=== PATIENT | female | born 1940 | race Caucasian/White ===

== ENCOUNTER 2019-05-02 18:27 | Observation (INO) | payer OTHER ==
--- OUTSIDE RECORDS SUMMARY | 2019-05-02 18:29 | XMS REPORT ---
:1940 [facility] Address [address] [place] [address] Dr. Alfaro [address] [place] [id number] Care Team Providers Name Role Phone Unavailable Unavailable Unavailable Problems This patient has no known problems. Allergies, Adverse Reactions, Alerts This patient has no known allergies or adverse reactions. Medications This patient has no known medications. Encounters Start End Encounter Admission Attending Care Care Encounter Date/Time Date/Time Type Type Clinicians Facility Department ID 2019-01-07 2019-01-07 Emergency E [id number] 18:34:00 18:34:00
--- NOTE | 2019-05-02 18:52 | RAD REPORT ---
EXAM DESCRIPTION: CT - Ct Stroke Brain Wo Cont - 05/02/2019 6:39 pm CLINICAL HISTORY: EXPRESSIVE APHASIA COMPARISON: none TECHNIQUE: Computed axial tomography of the head was obtained. All CT scans are performed using dose optimization technique as appropriate and may include automated exposure control or mA/KV adjustment according to patient size. FINDINGS: An intracranial bleed is not seen . The ventricles are normal in caliber. No extra-axial fluid collection is noted. Coarse vertebral artery calcifications Mild low-density within periventricular, deep and subcortical white matter likely ischemic changes se condary to small vessel disease Fluid within the sinuses/ mastoids is not seen. IMPRESSION: No acute intracranial abnormality is seen. If patient's symptoms persist MRI of the bra in would be recommended. Dr Murguia of the emergency room was notified at 6:30 p.m. May 02, 2019
[2019-05-02 19:02] LABS: Absolute Lymphocytes (CBC) 1.5 K/uL (0.7-4.9); Basophils % 1.5 % (0-1.3); Hematocrit 44.3 % (36.0-45.0); Lymphocytes % 20.7 % (15.3-44.8); MPV 10.3 fL (7.6-11.3); RBC Red Blood Cell Count 4.97 M/uL (3.86-4.86)
[2019-05-02 19:11] LABS: Potassium 4.2 mmol/L (3.5-5.1)
[2019-05-02 19:24] LABS: Protime INR 1.03
--- NOTE | 2019-05-02 19:25 | RAD REPORT ---
EXAM DESCRIPTION: Wanda Single View05/02/2019 6:51 pm CLINICAL HISTORY: cva COMPARISON: none FINDINGS: The lungs appear clear of acute infiltrate. The heart is normal size A central venous line has its tip in the superior vena cava IMPRESSION: No acute abnormalities displayed
[2019-05-02] MEDS ORDERED: LORazepam 2 MG/ML VIAL ONE (19:35)
--- NOTE | 2019-05-02 23:09 | ER ---
Nurse's Notes [facility] Name: Christy Corona Age: 79 yrs Sex: Female : 1940 Arrival Date: 05/02/2019 Time: 18:29 Bed 23 Private MD: Diagnosis: Transient ischemic attack Presentation: 05/02 18:19 An acute neurological deficit is present. The charge nurse has been notified. Onset of tw2 symptoms was May 02, 2019. Risk Assessment: Do you want to hurt yourself or someone else? Patient reports no desire to harm self or others. Initial Sepsis Screen: Does the patient meet any 2 criteria? No. Patient's initial sepsis screen is negative. Does the patient have a suspected source of infection? No. Patient's initial sepsis screen is negative. Note pt taken via w/c to CT with BAKARI Howe at this time. Care prior to arrival: None. 18:19 Acuity: LATHA 2 tw2 18:29 Presenting complaint: Friend states: started about 45 minutes ago, was normal, then she tw2 started saying words that dont make sense. Transition of care: patient was not received from another setting of care. 18:29 Method Of Arrival: Wheelchair tw2 18:42 Pre-hospital glucose is not applicable to this patient. Triage Assessment: 18:29 Neuro: Reports APhasia. 18:31 The onset of the patients symptoms was May 02, 2019 at 17:30. Neuro:. tw2 Stroke Activation: Symptom onset < 3 hours Physician: Stroke Attending; Name: ; Notified At: ; Arrived At: Physician: Chief Stroke Resident; Name: ; Notified At: ; Arrived At: Physician: Stroke Resident; Name: ; Notified At: ; Arrived At: Physician: ED Attending; Name: ; Notified At: ; Arrived At: Physician: ED Resident; Name: ; Notified At: ; Arrived At: 18:29 called at 1819 tw2 Historical: - Allergies: 19:30 No Known Allergies; - Home Meds: 19:30 levothyroxine 25 mcg tab 1 tab once daily [Active]; paroxetine HCl 10 mg oral tab 1 tab once daily [Active]; pioglitazone 15 mg oral tab [Active]; glimepiride 2 mg Oral tab 1 tab once daily [Active]; aspirin 81 mg Oral chew 1 tab once daily [Active]; metoprolol tartrate 100 mg Oral tab 1 tab once daily [Active]; - PMHx: 19:30 Diabetes - NIDDM; Hypertension; High Cholesterol; Non Hodgkins Lymphoma; - PSHx: 19:30 Cholecystectomy; Spinal SUrgery; - Immunization history:: Adult Immunizations. - Social history:: Smoking status: . - Ebola Screening: : Patient denies travel to an Ebola-affected area in the 21 days before illness onset. Screenin:35 Fall Risk None identified. wh 18:42 Abuse screen: Denies threats or abuse. Denies injuries from another. Nutritional ss screening: No deficits noted. Tuberculosis screening: Never had TB. Assessment: 18:31 VAN Scoring: Arm Drift: Patients demonstrates NO arm weakness. Patient is VAN Negative. tw2 Aphasia: Expressive aphasia noted. Provider notified of +VAN scoring. 18:35 General: Appears in no apparent distress. Behavior is calm, cooperative, appropriate wh for age. Pain: Denies pain. Neuro: Level of Consciousness is awake, alert, obeys commands, Oriented to person, place, time, situation, Appropriate for age Chemical Tank Worker are equal bilaterally Moves all extremities. Gait is steady, Speech is normal, Facial symmetry appears normal, Pupils are PERRLA, Intact. Cardiovascular: Heart tones S1 S2. Respiratory: Airway is patent Respiratory effort is even, unlabored, Respiratory pattern is regular, symmetrical. GI: Abdomen is flat, non-distended. : No signs and/or symptoms were reported regarding the genitourinary system. EENT: No signs and/or symptoms were reported regarding the EENT system. Derm: Skin is intact, is healthy with good turgor, Skin is pink, warm \T\ dry. normal. Musculoskeletal: Circulation, motion, and sensation intact. 18:35 Patient has been NPO before screening. The patient is alert, and able to follow commands. The patient does not exhibit slurred or garbled speech. The patient is not exhibiting difficulty speaking. The patient does not exhibit difficulty understanding words. The patient is able to swallow own secretions with no drooling or need for suction. Patient tolerated one teaspoon of water. No drooling, immediate coughing, gurgling, or clearing of the throat was noted. The patient tolerated 90mL of water. No drooling, immediate coughing, gurgling, or clearing of the throat was noted. The patient passed the bedside swallow screening. Oral medications may be given as ordered. Contact Physician for further diet orders. Provider notified of bedside swallow screening results: Celia Herron. 18:47 Reassessment: Decision to not administer TPA at this time per Dr. Murguia as patient's ss symptoms have resolved completely. 19:39 Reassessment: Patient appears in no apparent distress at this time. No changes from previously documented assessment. Patient and/or family updated on plan of care and expected duration. Pain level reassessed. Patient is alert, oriented x 3, equal unlabored respirations, skin warm/dry/pink. 20:35 Reassessment: Patient appears in no apparent distress at this time. No changes from previously documented assessment. Patient and/or family updated on plan of care and expected duration. Pain level reassessed. Patient is alert, oriented x 3, equal unlabored respirations, skin warm/dry/pink. 21:36 Reassessment: Patient appears in no apparent distress at this time. No changes from previously documented assessment. Patient and/or family updated on plan of care and expected duration. Pain level reassessed. Patient is alert, oriented x 3, equal unlabored respirations, skin warm/dry/pink. Pt returned from MRI. 22:37 Reassessment: Patient appears in no apparent distress at this time. No changes from previously documented assessment. Patient and/or family updated on plan of care and expected duration. Pain level reassessed. Patient is alert, oriented x 3, equal unlabored respirations, skin warm/dry/pink. Family at bedside Patient denies pain at this time. 23:45 Reassessment: Patient appears in no apparent distress at this time. No changes from previously documented assessment. Patient and/or family updated on plan of care and expected duration. Pain level reassessed. Patient is alert, oriented x 3, equal unlabored respirations, skin warm/dry/pink. Dr Samson at bedside explaining POC plan for admit. Vital Signs: 18:31 Temp 97.9(TE); tw2 19:39 BP 119 / 73; Pulse 92; Resp 18; Pulse Ox 98% on R/A; wh 20:30 BP 123 / 74; Pulse 87; Resp 18; Pulse Ox 99% ; wh 21:30 BP 119 / 72; Pulse 88; Resp 18; Pulse Ox 96% ; wh 22:38 BP 135 / 93; Pulse 92; Resp 18; Pulse Ox 98% ; 23:45 BP 134 / 81; Pulse 92; Resp 18; Pulse Ox 98% on R/A; 16 00:37 BP 125 / 83; Pulse 94; Resp 17; Pulse Ox 97% on R/A; rv NIH Stroke Scale Scores: 05/02 18:24 NIHSS Score: 1 ss 18:35 NIHSS Score: 0 wh 18:47 NIHSS Score: 0 ss 18:48 NIHSS Score: 0 kdr ED Course: 18:29 Patient arrived in ED. tw2 18:31 Triage completed. tw2 18:31 Arm band placed on. tw2 18:37 Celia Herron is Primary Nurse. 18:40 CT Stroke Brain w/o Contrast In Process Unspecified. EDMS 18:42 Patient has correct armband on for positive identification. Bed in low position. Call ss light in reach. 18:44 Inserted saline lock: 20 gauge in left antecubital area, using aseptic technique. ss ,using aseptic technique. Insertion by Celia Meneses RN Blood collected. Patient maintains SpO2 saturation greater than 95% on room air. 18:47 Kenny Murguia MD is Attending Physician. kdr 18:50 Stroke CXR 1 View In Process Unspecified. EDMS 20:46 MRA Head Wo Cont In Process Unspecified. EDMS 20:47 MRA Neck W/Wo Cont In Process Unspecified. EDMS 20:47 Brain W/Wo Cont In Process Unspecified. EDMS 23:08 Edilberto Samson is Hospitalizing Provider. tw4 05/03 00:38 No provider procedures requiring assistance completed. Patient admitted, IV remains in rv place. Administered Medications: 05/02 19:39 Drug: Ativan 0.5 mg Route: IVP; Site: left antecubital; 22:10 Follow up: Response: No adverse reaction; Anxiety decreased; RASS: Alert and Calm (0) Point of Care Testing: Blood Glucose: 18:30 Blood Glucose: 149 mg/dL; Ranges: Outcome: 23:09 Decision to Hospitalize by Provider. tw4 05/03 00:38 Admitted to Med/surg accompanied by tech, via wheelchair, room 203, with chart, Report rv called to carmi rn Condition: good Instructed on the need for admit. 00:39 Patient left the ED. rv NIH Stroke Scale - NIH Stroke Score Date: 05/02/2019 Time: 18:24 Total Score = 1 1a. Level of Consciousness (LOC) - 0(Alert) 1b. Level of Consciousness (LOC) (Year \T\ Age) - 0(Both) 1c. LOC Commands (Open \T\ Closes Eyes/Benzene Still Utility Operator) - 0(Both) 2. Best Gaze (Lateral Gaze Paresis) - 0(Normal) 3. Visual Field Loss - 0(No visual loss) 4. Facial Palsy - 0(Normal) 5a. Left Arm: Motor (10-second hold) - 0(No drift) 5b. Right Arm: Motor (10-second hold) - 0(No drift) 6a. Left Leg: Motor (5-second hold - always test supine) - 0(No drift) 6b. Right Leg: Motor (5-second hold - always test supine) - 0(No drift) 7. Limb Ataxia (finger/nose \T\ heel/penaloza - test with eyes open) - 0(Absent) 8. Sensory Loss (pinprick arms/legs/face) - 0(Normal) 9. Best Language: Aphasia (description/naming/reading) - 1(Mild to moderate aphasia) 10. Dysarthria (speech clarity - read or repeat words) - 0(Normal) 11. Extinction and Inattention (visual/tactile/auditory/spatial/personal) - 0(No abnormality) Initials: NIH Stroke Scale - NIH Stroke Score Date: 05/02/2019 Time: 18:35 Total Score = 0 1a. Level of Consciousness (LOC) - 0(Alert) 1b. Level of Consciousness (LOC) (Year \T\ Age) - 0(Both) 1c. LOC Commands (Open \T\ Closes Eyes/Benzene Still Utility Operator) - 0(Both) 2. Best Gaze (Lateral Gaze Paresis) - 0(Normal) 3. Visual Field Loss - 0(No visual loss) 4. Facial Palsy - 0(Normal) 5a. Left Arm: Motor (10-second hold) - 0(No drift) 5b. Right Arm: Motor (10-second hold) - 0(No drift) 6a. Left Leg: Motor (5-second hold - always test supine) - 0(No drift) 6b. Right Leg: Motor (5-second hold - always test supine) - 0(No drift) 7. Limb Ataxia (finger/nose \T\ heel/penaloza - test with eyes open) - 0(Absent) 8. Sensory Loss (pinprick arms/legs/face) - 0(Normal) 9. Best Language: Aphasia (description/naming/reading) - 0(No aphasia) 10. Dysarthria (speech clarity - read or repeat words) - 0(Normal) 11. Extinction and Inattention (visual/tactile/auditory/spatial/personal) - 0(No abnormality) Initials: NIH Stroke Scale - NIH Stroke Score Date: 05/02/2019 Time: 18:47 Total Score = 0 1a. Level of Consciousness (LOC) - 0(Alert) 1b. Level of Consciousness (LOC) (Year \T\ Age) - 0(Both) 1c. LOC Commands (Open \T\ Closes Eyes/Benzene Still Utility Operator) - 0(Both) 2. Best Gaze (Lateral Gaze Paresis) - 0(Normal) 3. Visual Field Loss - 0(No visual loss) 4. Facial Palsy - 0(Normal) 5a. Left Arm: Motor (10-second hold) - 0(No drift) 5b. Right Arm: Motor (10-second hold) - 0(No drift) 6a. Left Leg: Motor (5-second hold - always test supine) - 0(No drift) 6b. Right Leg: Motor (5-second hold - always test supine) - 0(No drift) 7. Limb Ataxia (finger/nose \T\ heel/penaloza - test with eyes open) - 0(Absent) 8. Sensory Loss (pinprick arms/legs/face) - 0(Normal) 9. Best Language: Aphasia (description/naming/reading) - 0(No aphasia) 10. Dysarthria (speech clarity - read or repeat words) - 0(Normal) 11. Extinction and Inattention (visual/tactile/auditory/spatial/personal) - 0(No abnormality) Initials: NIH Stroke Scale - NIH Stroke Score Date: 05/02/2019 Time: 18:48 Total Score = 0 1a. Level of Consciousness (LOC) - 0(Alert) 1b. Level of Consciousness (LOC) (Year \T\ Age) - 0(Both) 1c. LOC Commands (Open \T\ Closes Eyes/Benzene Still Utility Operator) - 0(Both) 2. Best Gaze (Lateral Gaze Paresis) - 0(Normal) 3. Visual Field Loss - 0(No visual loss) 4. Facial Palsy - 0(Normal) 5a. Left Arm: Motor (10-second hold) - 0(No drift) 5b. Right Arm: Motor (10-second hold) - 0(No drift) 6a. Left Leg: Motor (5-second hold - always test supine) - 0(No drift) 6b. Right Leg: Motor (5-second hold - always test supine) - 0(No drift) 7. Limb Ataxia (finger/nose \T\ heel/penaloza - test with eyes open) - 0(Absent) 8. Sensory Loss (pinprick arms/legs/face) - 0(Normal) 9. Best Language: Aphasia (description/naming/reading) - 0(No aphasia) 10. Dysarthria (speech clarity - read or repeat words) - 0(Normal) 11. Extinction and Inattention (visual/tactile/auditory/spatial/personal) - 0(No abnormality) Initials: kdr Signatures: Dispatcher [employer] EDKenny Andersen MD MD kdr Carley Rome RN RN ss Dana Childs RN RN tw2 Celia Herron Terrence, MD MD tw4 Addy Cleveland, RN RN rv
--- NOTE | 2019-05-02 23:10 | EDPHYS ---
Physician Documentation [facility] Name: Christy Corona Age: 79 yrs Sex: Female : 1940 Arrival Date: 05/02/2019 Time: 18:29 Bed 23 Private MD: ED Physician Kenny Murguia HPI: 05/02 18:51 This 79 yrs old Female presents to ER via Wheelchair with complaints of S/S kdr of Possible Stroke. 18:51 The patient's problem is reported as dysphasia, expressive aphasia. Onset: The kdr symptoms/episode began/occurred suddenly, just prior to arrival, .75 hour(s) ago. Duration: The episode is continuous, Improved and nearly resolved. Context: the episode(s) was witnessed, by a friend, symptoms became apparent 45 minutes [place]. The symptoms are alleviated by nothing. The symptoms are aggravated by nothing. Associated signs and symptoms: The patient has no apparent associated signs or symptoms. Severity of symptoms: At their worst the symptoms were mild in the emergency department the symptoms are unchanged. The patient has not experienced similar symptoms in the past. The patient has not recently seen a physician. Historical: - Allergies: 19:30 No Known Allergies; - Home Meds: 19:30 levothyroxine 25 mcg tab 1 tab once daily [Active]; paroxetine HCl 10 mg oral tab 1 tab wh once daily [Active]; pioglitazone 15 mg oral tab [Active]; glimepiride 2 mg Oral tab 1 tab once daily [Active]; aspirin 81 mg Oral chew 1 tab once daily [Active]; metoprolol tartrate 100 mg Oral tab 1 tab once daily [Active]; - PMHx: 19:30 Diabetes - NIDDM; Hypertension; High Cholesterol; Non Hodgkins Lymphoma; - PSHx: 19:30 Cholecystectomy; Spinal SUrgery; - Immunization history:: Adult Immunizations. - Social history:: Smoking status: . - Ebola Screening: : Patient denies travel to an Ebola-affected area in the 21 days before illness onset. ROS: 18:51 Constitutional: Negative for fever, chills, and weight loss, Eyes: Negative for injury, kdr pain, redness, and discharge, Neck: Negative for injury, pain, and swelling, Cardiovascular: Negative for chest pain, palpitations, and edema, Respiratory: Negative for shortness of breath, cough, wheezing, and pleuritic chest pain, Abdomen/GI: Negative for abdominal pain, nausea, vomiting, diarrhea, and constipation, Back: Negative for injury and pain, : Negative for injury, bleeding, discharge, and swelling, MS/Extremity: Negative for injury and deformity, Skin: Negative for injury, rash, and discoloration, Psych: Negative for depression, anxiety, suicide ideation, homicidal ideation, and hallucinations, Allergy/Immunology: Negative for hives, rash, and allergies, Endocrine: Negative for neck swelling, polydipsia, polyuria, polyphagia, and marked weight changes, Hematologic/Lymphatic: Negative for swollen nodes, abnormal bleeding, and unusual bruising. 18:51 Neuro: Positive for speech changes, Negative for altered mental status, dizziness, gait disturbance, headache, hearing loss, loss of consciousness, numbness, seizure activity, syncope, near syncope, tingling, tinnitus, tremor, visual changes, acute changes. Exam: 18:51 Radiologist reports: Negative kdr 18:51 Constitutional: This is a well developed, well nourished patient who is awake, alert, and in no acute distress. Head/Face: Normocephalic, atraumatic. Eyes: Pupils equal round and reactive to light, extra-ocular motions intact. Lids and lashes normal. Conjunctiva and sclera are non-icteric and not injected. Cornea within normal limits. Periorbital areas with no swelling, redness, or edema. Neck: Trachea midline, no thyromegaly or masses palpated, and no cervical lymphadenopathy. Supple, full range of motion without nuchal rigidity, or vertebral point tenderness. No Meningismus. Chest/axilla: Normal chest wall appearance and motion. Nontender with no deformity. No lesions are appreciated. Cardiovascular: Regular rate and rhythm with a normal S1 and S2. No gallops, murmurs, or rubs. Normal PMI, no JVD. No pulse deficits. Respiratory: Lungs have equal breath sounds bilaterally, clear to auscultation and percussion. No rales, rhonchi or wheezes noted. No increased work of breathing, no retractions or nasal flaring. Abdomen/GI: Soft, non-tender, with normal bowel sounds. No distension or tympany. No guarding or rebound. No evidence of tenderness throughout. Back: No spinal tenderness. No costovertebral tenderness. Full range of motion. Skin: Warm, dry with normal turgor. Normal color with no rashes, no lesions, and no evidence of cellulitis. MS/ Extremity: Pulses equal, no cyanosis. Neurovascular intact. Full, normal range of motion. Neuro: Awake and alert, GCS 15, oriented to person, place, time, and situation. Cranial nerves II-XII grossly intact. Motor strength 5/5 in all extremities. Sensory grossly intact. Cerebellar exam normal. Normal gait. Psych: Awake, alert, with orientation to person, place and time. Behavior, mood, and affect are within normal limits. 18:51 Neuro: Orientation: is normal, Mentation: is normal, Memory: is normal, Cranial nerves: grossly normal, is grossly normal based on the patient's age, no acute changes, Cerebellar function: is grossly normal, is grossly normal based on the patient's age, Romberg testing is negative, normal finger to nose testing, heel to penaloza testing is normal, able to perform alternating rapid hand movements, Motor: is normal, Sensation: is normal, seizure activity, is not displayed by the patient, Abnormal movements: there are no abnormal movements. Vital Signs: 18:31 Temp 97.9(TE); tw2 19:39 BP 119 / 73; Pulse 92; Resp 18; Pulse Ox 98% on R/A; 20:30 BP 123 / 74; Pulse 87; Resp 18; Pulse Ox 99% ; 21:30 BP 119 / 72; Pulse 88; Resp 18; Pulse Ox 96% ; 22:38 BP 135 / 93; Pulse 92; Resp 18; Pulse Ox 98% ; 23:45 BP 134 / 81; Pulse 92; Resp 18; Pulse Ox 98% on R/A; 16 00:37 BP 125 / 83; Pulse 94; Resp 17; Pulse Ox 97% on R/A; rv NIH Stroke Scale Scores: 05/02 18:24 NIHSS Score: 1 ss 18:35 NIHSS Score: 0 wh 18:47 NIHSS Score: 0 ss 18:48 NIHSS Score: 0 kdr MDM: 18:48 Data reviewed: vital signs, nurses notes. Physician consultation: Mac Markham MD kdr was called at 18:40, was contacted at 18:40, regarding patient's condition, Given current condition and stroke scale, tPA is not indicated. 22:02 Patient medically screened. tw4 05/02 18:39 Order name: Basic Metabolic Panel 05/02 18:39 Order name: CBC with Diff 05/02 18:35 Order name: CT Stroke Brain w/o Contrast 05/02 18:39 Order name: Protime (+inr) 05/02 18:39 Order name: Ptt, Activated 05/02 18:45 Order name: Glucose, Ancillary Testing; Complete Time: 18:48 EDOK 05/02 18:39 Order name: Stroke CXR 1 View 05/02 18:39 Order name: EKG; Complete Time: 18:41 05/02 20:13 Order name: MRA Head Wo Cont EDOK 05/02 20:15 Order name: MRA Neck W/Wo Cont [facility]OK 05/02 20:15 Order name: Brain W/Wo Cont [facility] 05/02 18:39 Order name: Accucheck; Complete Time: 18:43 05/02 18:39 Order name: Cardiac monitoring; Complete Time: 18:43 05/02 18:39 Order name: EKG - Nurse/Tech; Complete Time: 18:43 05/02 18:39 Order name: IV Saline Lock; Complete Time: 18:44 05/02 18:39 Order name: Labs collected and sent; Complete Time: 18:44 05/02 18:39 Order name: NPO; Complete Time: 18:44 05/02 18:39 Order name: O2 Per Protocol; Complete Time: 18:44 05/02 18:39 Order name: O2 Sat Monitoring; Complete Time: 18:44 05/02 18:39 Order name: Stroke Swallow Screen; Complete Time: 18:44 Administered Medications: 19:39 Drug: Ativan 0.5 mg Route: IVP; Site: left antecubital; 22:10 Follow up: Response: No adverse reaction; Anxiety decreased; RASS: Alert and Calm (0) Point of Care Testing: Blood Glucose: 18:30 Blood Glucose: 149 mg/dL; Ranges: Critical Glucose Levels:Adult <50 mg/dl or >400 mg/dl <40 mg/dl or >180 mg/dl Disposition: 05/02/19 23:09 Hospitalization ordered by Edilberto Samson for Observation. Preliminary diagnosis is Transient ischemic attack. - Bed requested for Telemetry/MedSurg (observation). - Status is Observation. rv - Condition is Stable. - Problem is new. - Symptoms have improved. UTI on Admission? No NIH Stroke Scale - NIH Stroke Score Date: 05/02/2019 Time: 18:24 Total Score = 1 1a. Level of Consciousness (LOC) - 0(Alert) 1b. Level of Consciousness (LOC) (Year \T\ Age) - 0(Both) 1c. LOC Commands (Open \T\ Closes Eyes/Environmental Sampler) - 0(Both) 2. Best Gaze (Lateral Gaze Paresis) - 0(Normal) 3. Visual Field Loss - 0(No visual loss) 4. Facial Palsy - 0(Normal) 5a. Left Arm: Motor (10-second hold) - 0(No drift) 5b. Right Arm: Motor (10-second hold) - 0(No drift) 6a. Left Leg: Motor (5-second hold - always test supine) - 0(No drift) 6b. Right Leg: Motor (5-second hold - always test supine) - 0(No drift) 7. Limb Ataxia (finger/nose \T\ heel/penaloza - test with eyes open) - 0(Absent) 8. Sensory Loss (pinprick arms/legs/face) - 0(Normal) 9. Best Language: Aphasia (description/naming/reading) - 1(Mild to moderate aphasia) 10. Dysarthria (speech clarity - read or repeat words) - 0(Normal) 11. Extinction and Inattention (visual/tactile/auditory/spatial/personal) - 0(No abnormality) Initials: NIH Stroke Scale - NIH Stroke Score Date: 05/02/2019 Time: 18:35 Total Score = 0 1a. Level of Consciousness (LOC) - 0(Alert) 1b. Level of Consciousness (LOC) (Year \T\ Age) - 0(Both) 1c. LOC Commands (Open \T\ Closes Eyes/Environmental Sampler) - 0(Both) 2. Best Gaze (Lateral Gaze Paresis) - 0(Normal) 3. Visual Field Loss - 0(No visual loss) 4. Facial Palsy - 0(Normal) 5a. Left Arm: Motor (10-second hold) - 0(No drift) 5b. Right Arm: Motor (10-second hold) - 0(No drift) 6a. Left Leg: Motor (5-second hold - always test supine) - 0(No drift) 6b. Right Leg: Motor (5-second hold - always test supine) - 0(No drift) 7. Limb Ataxia (finger/nose \T\ heel/penaloaz - test with eyes open) - 0(Absent) 8. Sensory Loss (pinprick arms/legs/face) - 0(Normal) 9. Best Language: Aphasia (description/naming/reading) - 0(No aphasia) 10. Dysarthria (speech clarity - read or repeat words) - 0(Normal) 11. Extinction and Inattention (visual/tactile/auditory/spatial/personal) - 0(No abnormality) Initials: NIH Stroke Scale - NIH Stroke Score Date: 05/02/2019 Time: 18:47 Total Score = 0 1a. Level of Consciousness (LOC) - 0(Alert) 1b. Level of Consciousness (LOC) (Year \T\ Age) - 0(Both) 1c. LOC Commands (Open \T\ Closes Eyes/Environmental Sampler) - 0(Both) 2. Best Gaze (Lateral Gaze Paresis) - 0(Normal) 3. Visual Field Loss - 0(No visual loss) 4. Facial Palsy - 0(Normal) 5a. Left Arm: Motor (10-second hold) - 0(No drift) 5b. Right Arm: Motor (10-second hold) - 0(No drift) 6a. Left Leg: Motor (5-second hold - always test supine) - 0(No drift) 6b. Right Leg: Motor (5-second hold - always test supine) - 0(No drift) 7. Limb Ataxia (finger/nose \T\ heel/penaloza - test with eyes open) - 0(Absent) 8. Sensory Loss (pinprick arms/legs/face) - 0(Normal) 9. Best Language: Aphasia (description/naming/reading) - 0(No aphasia) 10. Dysarthria (speech clarity - read or repeat words) - 0(Normal) 11. Extinction and Inattention (visual/tactile/auditory/spatial/personal) - 0(No abnormality) Initials: NIH Stroke Scale - NIH Stroke Score Date: 05/02/2019 Time: 18:48 Total Score = 0 1a. Level of Consciousness (LOC) - 0(Alert) 1b. Level of Consciousness (LOC) (Year \T\ Age) - 0(Both) 1c. LOC Commands (Open \T\ Closes Eyes/Environmental Sampler) - 0(Both) 2. Best Gaze (Lateral Gaze Paresis) - 0(Normal) 3. Visual Field Loss - 0(No visual loss) 4. Facial Palsy - 0(Normal) 5a. Left Arm: Motor (10-second hold) - 0(No drift) 5b. Right Arm: Motor (10-second hold) - 0(No drift) 6a. Left Leg: Motor (5-second hold - always test supine) - 0(No drift) 6b. Right Leg: Motor (5-second hold - always test supine) - 0(No drift) 7. Limb Ataxia (finger/nose \T\ heel/penaloza - test with eyes open) - 0(Absent) 8. Sensory Loss (pinprick arms/legs/face) - 0(Normal) 9. Best Language: Aphasia (description/naming/reading) - 0(No aphasia) 10. Dysarthria (speech clarity - read or repeat words) - 0(Normal) 11. Extinction and Inattention (visual/tactile/auditory/spatial/personal) - 0(No abnormality) Initials: kdr Signatures: Dispatcher [employer] EDMS Kenny Murguia MD MD kdr Meenakshi Richey RN RN cg Dana Childs RN RN tw2 Celia Herron Terrence, MD MD tw4 Addy Cleveland, RN RN rv Corrections: (The following items were deleted from the chart) 18:42 18:40 CT-STROKE BRAIN W/O CONTRAST+CT.RAD.BRZ ordered. [facility] 20:13 18:48 MR STROKE PROTOCOL+MRI.RADMEENA ordered. [facility] 05/03 00:21 05/02 23:09 Hospitalization Ordered by Edilberto Samson for Observation. cg Preliminary diagnosis is Transient ischemic attack. Bed requested for Telemetry/MedSurg (observation). Status is Observation. Condition is Stable. Problem is new. Symptoms have improved. UTI on Admission? No. tw4 05/03 00:39 00:21 05/02/2019 23:09 Hospitalization Ordered by Edilberto Samson for rv Observation. Preliminary diagnosis is Transient ischemic attack. Bed requested for Telemetry/MedSurg (observation). Status is Observation. Condition is Stable. Problem is new. Symptoms have improved. UTI on Admission? No. cg
--- NOTE | 2019-05-02 23:54 | P.HP ---
Certification for Inpatient Patient admitted to: Observation With expected LOS: <2 Midnights Practitioner: I am a practitioner with admitting privileges, knowledge of patient current condition, hospital course, and medical plan of care. Services: Services provided to patient in accordance with Admission requirements found in Title 42 Section 412.3 of the Code of Federal Regulations Patient History Date of Service: 05/03/19 Reason for admission: Inability to speak History of Present Illness: 79-year-old woman with a history of hypertension, hyperlipidemia, DM type 2, prior history of multiple TIAs in the past presented to the emergency department with a complaint of sudden and transient inability to speak. Patient stated she could not verbalize her thought. Symptoms were transient. She denied any headache or palpitation or shortness of breath. Patient reports she once had an irregular pulse but her heart examination was fine and regular. In the ED, CT head showed no acute disease. EKG demonstrated sinus rhythm. MRI of the brain reported no acute infarct or hemorrhage. MRA did report some atherosclerosis in the left internal carotid artery. Patient's symptoms had resolved and her speech was normal during my examination. Family by her bedside report occasional breaks in her speech. Patient is placed under observation for further evaluation. Allergies No Known Allergies Allergy (Unverified 05/03/19 01:05) Home Medications: Aspirin 81 mg PO DAILY 05/03/19 Dulaglutide [Trulicity] 1.5 mg SQ SEECOM 05/03/19 Glimepiride 2 mg PO DAILY 05/03/19 Levothyroxine [Synthroid*] 25 mcg PO DAILY 05/03/19 Metoprolol Succinate [Toprol Xl] 100 mg PO DAILY 05/03/19 PARoxetine HCl [Paroxetine HCl] 20 mg PO DAILY 05/03/19 Pioglitazone HCl 15 mg PO DAILY 05/03/19 - Past Medical/Surgical History -: Hypertension -: Hypercholesterolemia -: History of B-cell lymphoma -: Obesity -: Diabetes mellitus type 2 -: [place] - Family History Mother -: Diabetes - Social History Smoking Status: Never smoker Alcohol use: No CD- Drugs: No Review of Systems Other: General: No fever, no malaise, no unintentional weight loss. Eyes: No eye discharge, Respiratory: No cough, no shortness of breath. CVS: no palpitation, no lightheadedness. GI: No abdominal pain, no nausea no vomit, no constipation, no diarrhea. Genitourinary: No dysuria, no urinary frequency, no incontinence, no hematuria. Musculoskeletal: No joint pains, or joint swelling, no gait instability. Neurology: No headache, no asymmetric, weakness, no problem with swallowing. Except as documented, all other systems reviewed and negative. Physical Examination - Physical Exam General: Alert, In no apparent distress, Oriented x3 HEENT: Atraumatic, Normocephalic, PERRLA, Mucous membr. moist/pink, Sclerae nonicteric Neck: Supple, 2+ carotid pulse no bruit, JVD not distended, No Thyromegaly Respiratory: Clear to auscultation bilaterally, Normal air movement Cardiovascular: No edema, Normal pulses, Regular rate/rhythm, Normal S1 S2, No murmurs Capillary refill: <2 Seconds Gastrointestinal: Normal bowel sounds, Soft and benign, Non-distended, No tenderness Musculoskeletal: No swelling Integumentary: No rashes, No erythema Neurological: Normal speech, Normal strength at 5/5 x4 extr, Normal tone, Cranial nerves 3-12 intact - Studies Laboratory Data (last 24 hrs) 05/02/19 18:35: PT 12.1, INR 1.03, APTT 34.2 05/02/19 18:35: WBC 7.2, Hgb 14.9, Hct 44.3, Plt Count 219 05/02/19 18:35: Sodium 138, Potassium 4.2, BUN 19 H, Creatinine 1.11, Glucose 162 H Assessment and Plan - Problems (Diagnosis) (1) TIA (transient ischemic attack) Current Visit: Yes Status: Acute (2) Hypertension Current Visit: Yes Status: Acute (3) Hyperlipidemia Current Visit: Yes Status: Acute (4) Type 2 diabetes mellitus Current Visit: Yes Status: Acute (5) Hypothyroidism Current Visit: Yes Status: Acute - Plan Place under observation Telemetry monitoring Continue aspirin 81 mg daily Add Plavix 75 mg daily Obtain echocardiogram Check lipid profile. Start cholesterol-lowering med if LDL is greater than 70. Consulting to Neurology. Hold antihypertensives due to soft blood pressure. Patient may need event monitor to assess for AFib as outpatient. - Advance Directives Does patient have a Living Will: No Does patient have a Durable POA for Healthcare: No
[2019-05-03 01:04] VITALS: BMI 43.0
[2019-05-03] MEDS ORDERED: ALBUTEROL 2.5 MG/3 ML NEB SOL NEB PRN (01:07)
[2019-05-03] MEDS ORDERED: MAGNESIUM HYDROXIDE 8% 30 ML PO PRN (01:07)
[2019-05-03] MEDS ORDERED: NA CHLORIDE 0.9% 1,000 ML IV SCH (01:07)
[2019-05-03 02:49] VITALS: O2SAT 97
[2019-05-03 05:07] LABS: Absolute Lymphocytes (CBC) 1.3 K/uL (0.7-4.9); Basophils % 0.7 % (0-1.3); Lymphocytes % 20.1 % (15.3-44.8)
[2019-05-03 06:54] LABS: Phosphorus 4.2 mg/dL (2.5-4.9); Potassium 3.8 mmol/L (3.5-5.1); Thyroid Stimulating Hormone 3.69 uIU/mL (0.360-3.740)
[2019-05-03] MEDS: INSULIN -REGULAR HUMAN 50 UNIT/0.5 ML ML SQ SCH ×2 (07:30→11:30)
--- NOTE | 2019-05-03 08:10 | EKG ---
Test Date: 2019-05-02 Test Time: 18:51:46 Leather Cleaner: LMT MEASUREMENT RESULTS: Intervals: Rate: 91 MS: 208 QRSD: 100 QT: 406 QTc: 499 [place]: P: 33 MS: 208 QRS: -70 T: -23 INTERPRETIVE STATEMENTS: Normal sinus rhythm Left anterior fascicular block Moderate voltage criteria for LVH, may be normal variant Abnormal ECG No previous ECG available for comparison Electronically Signed On 05-03-19 08:09:53 [employer] by Devan Gallo
--- NOTE | 2019-05-03 08:26 | P.PN ---
Subjective Date of Service: 05/03/19 Chief Complaint: Inability to speak Subjective: No new changes, Improving, Doing well (Symptoms resolved) Physical Examination - Vital Signs Temperature: 97.6 F Blood Pressure: 137/69 Pulse: 84 Respirations: 18 Pulse Ox (%): 96 - Studies Laboratory Data (last 24 hrs) 05/02/19 18:35: PT 12.1, INR 1.03, APTT 34.2 05/02/19 18:35: WBC 7.2, Hgb 14.9, Hct 44.3, Plt Count 219 05/02/19 18:35: Sodium 138, Potassium 4.2, BUN 19 H, Creatinine 1.11, Glucose 162 H
[2019-05-03] MEDS ORDERED: ENOXAPARIN 40 MG/0.4 ML SQ SCH (09:00)
[2019-05-03] MEDS ORDERED: POTASSIUM CL SA 10 MEQ TAB PO ONE (09:00)
[2019-05-03] MEDS ORDERED: CLOPIDOGREL 75 MG TABLET PO SCH (09:00)
[2019-05-03] MEDS ORDERED: ASPIRIN EC 81 MG TAB PO SCH (09:00)
--- NOTE | 2019-05-03 14:10 | P.DS ---
Admission Date: 05/03/19 Discharge Date: 05/04/19 Disposition: ROUTINE DISCHARGE Discharge Condition: GOOD Reason for Admission: Inability to speak - Problems (1) Hyperlipidemia Status: Acute (2) Hypertension Status: Acute (3) Hypothyroidism Status: Acute (4) TIA (transient ischemic attack) Status: Acute (5) Type 2 diabetes mellitus Status: Acute Brief History of Present Illness: 79-year-old woman with a history of hypertension, hyperlipidemia, DM type 2, prior history of multiple TIAs in the past presented to the emergency department with a complaint of sudden and transient inability to speak. Patient stated she could not verbalize her thought. Symptoms were transient. She denied any headache or palpitation or shortness of breath. Patient reports she once had an irregular pulse but her heart examination was fine and regular. In the ED, CT head showed no acute disease. EKG demonstrated sinus rhythm. MRI of the brain reported no acute infarct or hemorrhage. MRA did report some atherosclerosis in the left internal carotid artery. Patient's symptoms had resolved and her speech was normal during my examination. Family by her bedside report occasional breaks in her speech. Patient is placed under observation for further evaluation. Hospital Course: She was admitted, monitored closely under telemetry, a stroke workup was done which was negative. Has not CT as well as an MRI showed no acute infarct. Echocardiogram and neurology were consulted. His symptoms improved but overall resolved with conservative management with aspirin and Plavix. Discussed in detail with the patient about the need for statin but the patient refused as she is to get muscle cramps and generalized weakness with statins. She does not want to wait for neurology and echocardiogram. She also underwent PT, OT, ST evaluations . She has been discharged home today in stable condition and advised to follow up with PCP in 1 week and also with neurology as early as possible Vital Signs/Physical Exam: Temp Pulse Resp BP Pulse Ox 97.6 F 84 18 137/69 96 05/03/19 08:26 05/03/19 08:26 05/03/19 08:26 05/03/19 08:26 05/03/19 08:26 General: Alert, In no apparent distress HEENT: Atraumatic, Normocephalic Neck: Supple Respiratory: Clear to auscultation bilaterally, Normal air movement Cardiovascular: Normal pulses, Regular rate/rhythm Capillary refill: <2 Seconds Gastrointestinal: Soft and benign, W/out hepatosplenomegaly Musculoskeletal: No clubbing, No swelling Neurological: Normal strength at 5/5 x4 extr Lymphatics: No axilla or inguinal lymphadenopathy Laboratory Data at Discharge: WBC 6.5 K/uL (4.3-10.9) 05/03/19 04:43 Hgb 13.1 g/dL (12.0-15.0) 05/03/19 04:43 Hct 38.0 % (36.0-45.0) 05/03/19 04:43 Plt Count 179 K/uL (152-406) 05/03/19 04:43 PT 12.1 SECONDS (9.5-12.5) 05/02/19 18:35 INR 1.03 05/02/19 18:35 APTT 31.9 SECONDS (24.3-36.9) 05/03/19 01:31 Sodium 139 mmol/L (136-145) 05/03/19 04:43 Potassium 3.8 mmol/L (3.5-5.1) 05/03/19 04:43 BUN 17 mg/dL (7-18) 05/03/19 04:43 Creatinine 0.84 mg/dL (0.55-1.3) 05/03/19 04:43 Glucose 115 mg/dL (74-106) H 05/03/19 04:43 Phosphorus 4.2 mg/dL (2.5-4.9) 05/03/19 04:43 Magnesium 2.0 mg/dL (1.8-2.4) 05/03/19 04:43 Triglycerides 277 mg/dL (<150) H 05/03/19 04:43 Cholesterol 223 mg/dL (<200) H 05/03/19 04:43 HDL Cholesterol 40 mg/dL (40-60) 05/03/19 04:43 Cholesterol/HDL Ratio 5.58 05/03/19 04:43 Home Medications: Aspirin 81 mg PO DAILY 05/03/19 Clopidogrel Bisulfate [Plavix*] 75 mg PO DAILY #15 tablet 05/03/19 Dulaglutide [Trulicity] 1.5 mg SQ SEECOM 05/03/19 Glimepiride 2 mg PO DAILY 05/03/19 Levothyroxine [Synthroid*] 25 mcg PO DAILY 05/03/19 Metoprolol Succinate [Toprol Xl] 100 mg PO DAILY 05/03/19 PARoxetine HCl [Paroxetine HCl] 20 mg PO DAILY 05/03/19 Pioglitazone HCl 15 mg PO DAILY 05/03/19 New Medications: Clopidogrel Bisulfate [Plavix*] 75 mg PO DAILY #15 tablet Diet: AHA Activity: Ad butch Followup: Mac Markham MD [ASSOCIATE-ACTIVE - CAN ADMIT] - (please call to make an appointment. )
[2019-05-03 14:50] VITALS: BP 150/80; TEMP 98
--- NOTE | 2019-05-05 13:22 | RAD REPORT ---
EXAM DESCRIPTION: MR Head Without and With Intravenous Contrast. MRA Head Without Contrast. MRA Neck With And Without Contrast. CLINICAL HISTORY: The patient is 79 years old and is Female; Expressive aphasia TECHNIQUE: Magnetic resonance images of the head/brain in multiple planes without contrast. Magnetic resonance angiography images of the head without contrast and magnetic resonance angiography images of the neck without and with intravenous contrast. COMPARISON: CT head without contrast of the same day. FINDINGS: HEAD: BRAIN: No acute intracranial hemorrhage. No restricted diffusion. No extra-axial collection. No ma ss effect. Mild prominence of the frontoparietal sulci. Moderate scattered periventricular and subcortical white matter FLAIR signal hyperintensitie s. VENTRICLES: See below. BONES/JOINTS: Unremarkable. SINUSES: Unremarkable as visualized. No acute sinusitis. MASTOID AIR CELLS: Unremarkable as visualized. No mastoid effusion. ORBITS: Prior cataract surgery. VASCULATURE: RIGHT INTERNAL CAROTID ARTERY: No acute findings. Intracranial segment is patent with no signifi cant stenosis. No aneurysm. RIGHT ANTERIOR CEREBRAL ARTERY: Unremarkable. No occlusion or significant stenosis. No aneurys m. RIGHT MIDDLE CEREBRAL ARTERY: Unremarkable. No occlusion or significant stenosis. No aneurysm. RIGHT POSTERIOR CEREBRAL ARTERY: Unremarkable. No occlusion or significant stenosis. No aneury sm. RIGHT VERTEBRAL ARTERY: Prominence and tortuosity of the right vertebral artery with mass effect o n right lateral ventricular. LEFT INTERNAL CAROTID ARTERY: Mild luminal narrowing of the proximal petrous portion of the ICAs b ilaterally. Narrowing of the left supraclinoid ICA. No aneurysm. LEFT ANTERIOR CEREBRAL ARTERY: Unremarkable. No occlusion or significant stenosis. No aneurysm . LEFT MIDDLE CEREBRAL ARTERY: Unremarkable. No occlusion or significant stenosis. No aneurysm. LEFT POSTERIOR CEREBRAL ARTERY: Unremarkable. No occlusion or significant stenosis. No aneurys m. BASILAR ARTERY: Unremarkable. No occlusion or significant stenosis. No aneurysm. OTHER FINDINGS: Postcontrast images demonstrate no abnormal enhancement. Diminutive left V4 segment. IMPRESSION: 1. No acute intracranial abnormality or abnormal enhancement. 2. Mild cerebral volume loss and moderate chronic small vessel ischemic changes. 3. Technically limited MRA head. 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 No intracran ial large vessel occlusion. 4. Normal MRA neck with and without contrast. 5. Dominant/tortuous right V4 segments with mild mass effect on right lateral medulla. Electronically signed by: Ayaan Gregorio DO 05/02/2019 10:51 PM DIRECTOR OF MARKETING [employer]IONS Due to temporary technical issues with the PACS/Fluency reporting system, reports are being signed by the in house radiologist as a courtesy to ensure prompt reporting. The interpreting radiologist is f ully responsible for the content of the report.
== END 2019-05-03 13:26 | disposition home or self-care (01) ==
LOC: ER 18:27 → ERHOLD 05-03 00:24 → 2ND 05-03 00:29
PROVIDERS: ADMIT Internal Medicine; ATTEND Internal Medicine
DX: G45.9 Transient cerebral ischemic attack, unspecified (principal); E78.5 Hyperlipidemia, unspecified; I10 Essential (primary) hypertension; E03.9 Hypothyroidism, unspecified; E11.9 Type 2 diabetes mellitus without complications; I65.22 Occlusion and stenosis of left carotid artery; E66.9 Obesity, unspecified; Z68.41 Body mass index [BMI] 40.0-44.9, adult; Z79.82 Long term (current) use of aspirin
CPT/HCPCS: 36415; 70450; 70544; 70549; 70553; 71045; 80048; 80061; 82947; 83735; 84100; 84443; 85025; 85610; 85730; 93005; 94760; 96374; 97112; 97116; 97161; 99285; A9577; G0378; J1650; J7030